=== PATIENT | male | born 1955 | race Caucasian/White ===

== ENCOUNTER → 2019-04-25 | Outpatient (CLI) | payer BC ==
[~2019-04-25] MED LIST: ACHD5005 PO; AMOX-358 PO; ATOR40TA70 PO; CLOP75TA28 PO; DOCU-143 PO; FURO40TA4 PO; METO-333 PO; METR500T PO; PANT40TA3 PO
--- NOTE | 2019-04-25 09:25 | Diagnostic Imaging Report ---
CLINICAL INDICATION: Patient with chronic low back pain. EXAM: MRI of the lumbar spine performed without IV contrast. Sagittal T2, sagittal T1, sagittal stir, axial T1, and axial T2. COMPARISON: None. FINDINGS: There is no acute lumbar spine fracture. There is Modic type I degenerative signal changes involving the L2-L3 endplates. The visualized portions of the distal thoracic spinal cord, conus medullaris, and cauda equina nerve roots are unremarkable. The conus medullaris tip is seen at the upper L1 vertebral body level. There is no significant paraspinal soft tissue abnormality. There is a 2.6 cm cyst involving the inferior pole of the right kidney. There are hypertrophic spurs involving the lumbar spine. There is mild right curvature of the lumbar spine. L1-L2: There is a minimal diffuse disc bulge and mild bilateral facet arthropathy. There is no significant right neural foramen narrowing and mild left neural foramen narrowing. There is no significant central canal narrowing. L2-L3: There is diffuse disc bulge with superimposed left subarticular/foraminal disc osteophyte complex. There is severe loss of intervertebral disc height and moderate bilateral facet arthropathy. There is severe central canal stenosis, severe left neural foramen narrowing and moderate right neural foramen narrowing. L3-L4: There is a diffuse disc bulge with [id number] loss of intervertebral disc height. There is moderate bilateral facet arthropathy/hypertrophy and ligamentum flavum buckling. There is moderate central canal stenosis, severe right neural foramen narrowing and [id number] left neural foramen narrowing. L4-L5: There is grade 1 anterolisthesis of L4 on L5 with moderate loss of intervertebral disc height. There is mild diffuse disc bulge, severe bilateral facet arthropathy/hypertrophy and degenerative facet effusions. Prominence of the posterior epidural fat. There is [id number] central canal narrowing, severe right neural foramen narrowing and mild left neural foramen narrowing. L5-S1: There is no significant disc bulge. There is severe right facet arthropathy/hypertrophy and mild left facet arthropathy/hypertrophy. There is no significant central spinal canal or neural foramen narrowing. IMPRESSION: 1: There is L2-L3 diffuse disc bulge with superimposed left subarticular/foraminal disc osteophyte complex which causes severe central canal stenosis, severe left neural foramen stenosis and moderate right neural foramen stenosis. 2: There is an L3-L4 diffuse disc bulge and facet arthropathy which contributes to moderate central canal stenosis, severe right neural foramen narrowing stenosis and aicgnmih-ih-omxhda left neural foramen stenosis. 3: There is grade 1 anterolisthesis of L4 on L5 with diffuse disc bulge and facet arthropathy which contributes to [id number]-tvbssvgz central canal stenosis and severe right neural foramen stenosis. 4: There is a right renal cyst. Dictated by: Dictated on workstation # [id number]
== END ==
LOC: RAD 07:30
PROVIDERS: ATTEND Physician Assistant
DX: M51.26 Other intervertebral disc displacement, lumbar region (principal); M25.78 Osteophyte, vertebrae; M48.061 Spinal stenosis, lumbar region without neurogenic claudication; M46.86 Other specified inflammatory spondylopathies, lumbar region; M43.16 Spondylolisthesis, lumbar region
CPT/HCPCS: 72148

== ENCOUNTER → 2019-10-19 | Outpatient (CLI) | payer BC | LOC: LABNPT 07:00 | PROVIDERS: ATTEND Orthopaedic Surgery | DX: Z20.828 Contact with and (suspected) exposure to other viral communicable diseases (principal) | CPT/HCPCS: 87635 ==

== ENCOUNTER → 2020-08-28 | Outpatient (CLI) | payer BC ==
[~2020-08-28] MED LIST changes: -PANT40TA3 PO; +PANT40TA52 PO
== END ==
LOC: CARD 10:00
PROVIDERS: ATTEND Internal Medicine Cardiovascular Disease
DX: I25.5 Ischemic cardiomyopathy (principal); I25.10 Atherosclerotic heart disease of native coronary artery without angina pectoris
CPT/HCPCS: 93306